=== PATIENT | female | born 1965 | race Asian ===

== ENCOUNTER 2019-02-12 12:22 | Outpatient (CLI) | payer BC, OTHER ==
[~2019-02-12 12:22] MED LIST: ASCO500C16 PO; ASPI-1165 PO; CHOL20004 PO; FOLI-65 PO
[2019-02-12 13:35] LABS: BASOPHILS # (AUTO) 0.1 K/uL (0.0-8.0); BASOPHILS % (AUTO) 1.1 % (0.0-2.0); EOSINOPHILS # (AUTO) 0.2 K/uL (0.0-0.7); EOSINOPHILS % (AUTO) 2.4 % (0.0-7.0); HEMATOCRIT 40.3 % (31.2-41.9); HEMOGLOBIN 13.2 g/dL (10.9-14.3); LYMPHOCYTES # (AUTO) 2.3 K/uL (20.0-40.0); LYMPHOCYTES % (AUTO) 23.7 % (20.5-51.5); MEAN CORPUSCULAR HEMOGLOBIN 27.5 uug (24.7-32.8); MEAN CORPUSCULAR HGB CONC 33 g/dL (32.3-35.6); MEAN CORPUSCULAR VOLUME 83.9 fL (75.5-95.3); MONOCYTES # (AUTO) 0.6 K/uL (2.0-10.0); MONOCYTES % (AUTO) 6.1 % (0.0-11.0); NEUTROPHILS # (AUTO) 6.5 K/uL (1.8-8.9); NEUTROPHILS % (AUTO) 66.7 % (38.5-71.5); PLATELET COUNT (AUTO) 261 K/uL (179-408); RED BLOOD CELL COUNT(AUTO) 4.81 MIL/uL (3.63-4.92); WHITE BLOOD COUNT (AUTO) 9.7 K/uL (3.8-11.8)
[2019-02-12 13:56] LABS: THYROID STIMULATING HORMONE 3.803 mIU/mL (0.358-3.740)
[2019-02-12 14:13] LABS: BILIRUBIN,TOTAL 0.6 mg/dL (0.2-1.0); CREATININE 0.5 mg/dL (0.6-1.3); MAGNESIUM 2.1 mg/dL (1.8-2.4); POTASSIUM 3.8 mmol/L (3.5-5.1); TOTAL PROTEIN, SERUM 7.7 g/dL (6.4-8.2)
[2019-02-13 13:06] LABS: *SJOGREN'S ANTI-SS-A <0.2 AI (0.0-0.9); *SJOGREN'S ANTI-SS-B 2.2 AI (0.0-0.9); *SMITH ANTIBODIES <0.2 AI (0.0-0.9); ANTI-DNA(DS) AB, QN <1 IU/mL (0-9)
== END 2019-02-12 23:59 | disposition home or self-care (01) ==
LOC: MERGE 12:22 → LAB 12:22
DX: M77.31 Calcaneal spur, right foot (principal); L65.9 Nonscarring hair loss, unspecified; L60.3 Nail dystrophy
CPT/HCPCS: 36415; 73620; 83550; 83735; 84443; 84480; 85025; 85651; 86038

== ENCOUNTER 2019-02-15 12:12 | Emergency (ER) | payer BC, OTHER ==
[~2019-02-15] VITALS: Ht 157.5 cm; Wt 72.6 kg
--- NOTE | 2019-02-15 12:32 | NUR ---
ERMD at bedside for MSE
[2019-02-15] MEDS ORDERED: HYDROCODONE/APAP 10-325 MG TABLET ONE (12:38)
[2019-02-15] MEDS ORDERED: predniSONE 50 MG TABLET ONE (12:39)
[2019-02-15] MEDS ORDERED: predniSONE 10 MG TABLET ONE (12:39)
[2019-02-15] MEDS ORDERED: HYDROCODONE/APAP 10-325 MG TABLET PO ONE (12:45)
[2019-02-15] MEDS ORDERED: predniSONE 20 MG TABLET PO ONE (12:45)
--- NOTE | 2019-02-15 12:48 | NUR ---
Patient refused raj silva aware.
[2019-02-15] MEDS ORDERED: ACETAMINOPHEN ES 500 MG TABLET ONE (12:50)
[2019-02-15] MEDS ORDERED: ACETAMINOPHEN ES 500 MG TABLET PO ONE (13:00)
[2019-02-15 13:01] VITALS: BP 106/72
== END 2019-02-15 13:02 | disposition home or self-care (01) ==
LOC: ER 12:12
DX: M54.42 Lumbago with sciatica, left side (principal); M54.41 Lumbago with sciatica, right side; Z88.2 Allergy status to sulfonamides; Z88.8 Allergy status to other drugs, medicaments and biological substances; Z79.82 Long term (current) use of aspirin; Z79.899 Other long term (current) drug therapy
CPT/HCPCS: 99283; J7512 ×2; A4663; A9150

== ENCOUNTER 2020-01-13 10:13 | Outpatient (CLI) | payer BC, OTHER ==
[~2020-01-13 10:13] MED LIST changes: -ASCO500C16 PO; +ASCO500C6 PO
[2020-01-13 10:52] LABS: BASOPHILS # (AUTO) 0.1 K/uL (0.0-8.0); BASOPHILS % (AUTO) 0.8 % (0.0-2.0); EOSINOPHILS # (AUTO) 0.3 K/uL (0.0-0.7); EOSINOPHILS % (AUTO) 3.9 % (0.0-7.0); HEMATOCRIT 42.3 % (31.2-41.9); HEMOGLOBIN 14.2 g/dL (10.9-14.3); LYMPHOCYTES # (AUTO) 1.9 K/uL (20.0-40.0); LYMPHOCYTES % (AUTO) 26.2 % (20.5-51.5); MEAN CORPUSCULAR HEMOGLOBIN 27.8 uug (24.7-32.8); MEAN CORPUSCULAR HGB CONC 34 g/dL (32.3-35.6); MEAN CORPUSCULAR VOLUME 82.9 fL (75.5-95.3); MONOCYTES # (AUTO) 0.4 K/uL (2.0-10.0); MONOCYTES % (AUTO) 5.6 % (0.0-11.0); NEUTROPHILS # (AUTO) 4.6 K/uL (1.8-8.9); NEUTROPHILS % (AUTO) 63.5 % (38.5-71.5); PLATELET COUNT (AUTO) 284 K/uL (179-408); WHITE BLOOD COUNT (AUTO) 7.3 K/uL (3.8-11.8)
[2020-01-13 11:22] LABS: THYROID STIMULATING HORMONE 2.197 mIU/mL (0.358-3.740)
[2020-01-13 11:36] LABS: BILIRUBIN,TOTAL 0.6 mg/dL (0.2-1.0); CREATININE 0.8 mg/dL (0.6-1.3); MAGNESIUM 2.2 mg/dL (1.8-2.4); POTASSIUM 3.6 mmol/L (3.5-5.1)
[2020-01-13 11:51] LABS: *BILIRUBIN,URIN NEGATIVE (NEGATIVE); *BLOOD, URINE 1+ (NEGATIVE); *CLARITY,URINE CLEAR (CLEAR); *COLOR,URINE YELLOW (YELLOW); *KETONES,URINE NEGATIVE (NEGATIVE); *UROBILINOGEN,URINE 0.2 E.U./dl (NORMAL); LEUKOCYTE ESTERASE ,URINE NEGATIVE (NEGATIVE); NITRITE, URINE NEGATIVE (NEGATIVE); UGLUCOSE NEGATIVE (NEGATIVE)
[2020-01-13 14:42] LABS: BACTERIA,URINE FEW /HPF (NONE SEEN); SQUAMOUS EPITHELIAL CELL,UR FEW /HPF (NONE SEEN); WBC,URINE 0-3 /HPF (0-3)
== END 2020-01-13 23:59 | disposition home or self-care (01) ==
LOC: LAB 10:13
DX: E66.9 Obesity, unspecified (principal); R35.0 Frequency of micturition; Z00.00 Encounter for general adult medical examination without abnormal findings
CPT/HCPCS: 36415; 82306; 83550; 83735; 84443; 85025; 85651; 86140; 87086

== ENCOUNTER 2020-01-14 14:20 | Outpatient (CLI) | payer BC, OTHER | END 2020-01-14 23:59 | disposition home or self-care (01) | LOC: US 14:20 | DX: R35.0 Frequency of micturition (principal); M19.90 Unspecified osteoarthritis, unspecified site; Z79.899 Other long term (current) drug therapy; Z98.890 Other specified postprocedural states; Z79.82 Long term (current) use of aspirin; Z88.2 Allergy status to sulfonamides; Z88.8 Allergy status to other drugs, medicaments and biological substances | CPT/HCPCS: 51798 ==

== ENCOUNTER 2020-08-27 18:22 | Emergency (ER) | payer BC, OTHER ==
[~2020-08-27] VITALS: Ht 157.5 cm; Wt 72.6 kg
--- NOTE | 2020-08-27 19:05 | NUR ---
Recieved pt from [facility]. Pt presents to ER with c/o of Lt shoulder pain since saturday. No swelling noted. States she took tylenol prior to arrival and current pain level is 5/10. No acute distress noted.
[2020-08-27] MEDS ORDERED: predniSONE 20 MG TABLET PO ONE (19:45)
[2020-08-27] MEDS ORDERED: predniSONE 20 MG TABLET ONE (19:54)
--- NOTE | 2020-08-27 20:03 | NUR ---
Per Dr. Castano pt stable for discharge. DC instructions and rx given and reviewed with pt. Verbalized understanding. Left ER in stable condition.
[2020-08-27 20:05] VITALS: BP 131/73
== END 2020-08-27 20:03 | disposition home or self-care (01) ==
LOC: ER 18:28
DX: M25.512 Pain in left shoulder (principal); M65.812 Other synovitis and tenosynovitis, left shoulder; Z82.49 Family history of ischemic heart disease and other diseases of the circulatory system; Z88.2 Allergy status to sulfonamides
CPT/HCPCS: 72040; 73030; 99284; J7512; A4663

== ENCOUNTER 2021-05-17 10:04 | Outpatient (CLI) | payer BC, OTHER ==
[2021-05-17 10:34] LABS: HEMATOCRIT 40.1 % (31.2-41.9); MEAN CORPUSCULAR HEMOGLOBIN 27.5 uug (24.7-32.8); PLATELET COUNT (AUTO) 274 K/uL (179-408)
[2021-05-17 10:36] LABS: *BILIRUBIN,URIN NEGATIVE (NEGATIVE); *BLOOD, URINE NEGATIVE (NEGATIVE); *CLARITY,URINE CLEAR (CLEAR); *COLOR,URINE YELLOW (YELLOW); *KETONES,URINE NEGATIVE (NEGATIVE); *UROBILINOGEN,URINE 0.2 E.U./dl (NORMAL); LEUKOCYTE ESTERASE ,URINE NEGATIVE (NEGATIVE); NITRITE, URINE NEGATIVE (NEGATIVE); UGLUCOSE NEGATIVE (NEGATIVE)
[2021-05-17 11:37] LABS: BILIRUBIN,TOTAL 0.5 mg/dL (0.2-1.0); CREATININE 0.7 mg/dL (0.6-1.3); MAGNESIUM 2.3 mg/dL (1.8-2.4); POTASSIUM 3.6 mmol/L (3.5-5.1); TOTAL PROTEIN, SERUM 7.4 g/dL (6.4-8.2)
[2021-05-17 12:00] LABS: THYROID STIMULATING HORMONE 1.687 mIU/mL (0.358-3.740)
== END 2021-05-17 23:59 | disposition home or self-care (01) ==
LOC: LAB 10:04
PROVIDERS: ATTEND Internal Medicine
DX: E66.9 Obesity, unspecified (principal); R42 Dizziness and giddiness; M79.672 Pain in left foot; R07.9 Chest pain, unspecified
CPT/HCPCS: 36415; 71046; 73630; 82306; 83550; 83735; 84443; 84480; 85025; 85651; 86140

== ENCOUNTER → 2022-07-27 | Outpatient (CLI) | payer BC, OTHER ==
[2022-07-27 10:57] LABS: *BILIRUBIN,URIN NEGATIVE (NEGATIVE); *CLARITY,URINE CLEAR (CLEAR); *COLOR,URINE YELLOW (YELLOW); *KETONES,URINE NEGATIVE (NEGATIVE); *UROBILINOGEN,URINE 0.2 E.U./dl (NORMAL); LEUKOCYTE ESTERASE ,URINE NEGATIVE (NEGATIVE); NITRITE, URINE NEGATIVE (NEGATIVE); UGLUCOSE NEGATIVE (NEGATIVE)
[2022-07-27 11:02] LABS: HEMATOCRIT 41.3 % (31.2-41.9); MEAN CORPUSCULAR HEMOGLOBIN 26.3 uug (24.7-32.8); MEAN CORPUSCULAR VOLUME 83.1 fL (75.5-95.3); PLATELET COUNT (AUTO) 255 K/uL (179-408)
[2022-07-27 11:05] LABS: *BLOOD, URINE TRACE (NEGATIVE)
[2022-07-27 11:24] LABS: THYROID STIMULATING HORMONE 2.336 mIU/mL (0.358-3.740)
[2022-07-27 11:30] LABS: BILIRUBIN,TOTAL 0.5 mg/dL (0.2-1.0); CREATININE 0.7 mg/dL (0.6-1.3); MAGNESIUM 2.2 mg/dL (1.8-2.4); POTASSIUM 4.2 mmol/L (3.5-5.1); TOTAL PROTEIN, SERUM 7.7 g/dL (6.4-8.2)
[2022-07-27 12:21] LABS: RBC,URINE 0-3 /HPF (0-3)
[2022-07-27 12:22] LABS: WBC,URINE 0-3 /HPF (0-3)
[2022-07-28 09:06] LABS: THYROID PEROXIDASE (TPO) AB <9 IU/mL (0-34)
== END | disposition home or self-care (01) ==
LOC: LAB 10:17
PROVIDERS: ATTEND Internal Medicine
DX: Z00.00 Encounter for general adult medical examination without abnormal findings (principal); R42 Dizziness and giddiness; E66.9 Obesity, unspecified
CPT/HCPCS: 36415; 82306; 83525; 83735; 84443; 84480; 85025; 85651; 86140

== ENCOUNTER 2023-02-04 09:31 | Emergency (ER) | payer BC, OTHER ==
[~2023-02-04] VITALS: Ht 157.5 cm; Wt 77.1 kg
[2023-02-04] MEDS ORDERED: AMOX-430 PO (10:33)
[2023-02-04] MEDS ORDERED: BENZ-13 PO (10:33)
[2023-02-04 10:38] VITALS: BP 112/76; TEMP 98.1; O2SAT 98
== END 2023-02-04 10:40 | disposition home or self-care (01) ==
LOC: ER 09:31
DX: J02.9 Acute pharyngitis, unspecified (principal); J06.9 Acute upper respiratory infection, unspecified; Z88.2 Allergy status to sulfonamides; Z88.8 Allergy status to other drugs, medicaments and biological substances; Z79.2 Long term (current) use of antibiotics; Z79.82 Long term (current) use of aspirin; Z79.899 Other long term (current) drug therapy; Z20.822 Contact with and (suspected) exposure to COVID-19
CPT/HCPCS: 86403; A4606; A4663

== ENCOUNTER 2023-06-05 10:14 | Outpatient (CLI) | payer BC, OTHER ==
[~2023-06-05 10:14] MED LIST changes: +AMOX-430 PO; +BENZ-13 PO
[2023-06-05 10:48] LABS: BASOPHILS # (AUTO) 0.3 K/UL (0.0-0.2); BASOPHILS % (AUTO) 3.2 % (0.0-2.0); EOSINOPHILS # (AUTO) 0.4 K/uL (0.0-0.7); EOSINOPHILS % (AUTO) 4.1 % (0.0-7.0); HEMATOCRIT 41.3 % (31.2-41.9); HEMOGLOBIN 13.4 g/dL (10.9-14.3); LYMPHOCYTES # (AUTO) 2.1 K/uL (0.8-4.8); LYMPHOCYTES % (AUTO) 19.1 % (20.5-51.5); MEAN CORPUSCULAR HEMOGLOBIN 26.8 uug (24.7-32.8); MEAN CORPUSCULAR HGB CONC 33 g/dL (32.3-35.6); MEAN CORPUSCULAR VOLUME 82.3 fL (75.5-95.3); MONOCYTES # (AUTO) 0.6 K/uL (0.1-1.30); NEUTROPHILS # (AUTO) 7.3 K/uL (1.8-8.9); NEUTROPHILS % (AUTO) 67.6 % (38.5-71.5); PLATELET COUNT (AUTO) 240 K/uL (179-408); RED BLOOD CELL COUNT(AUTO) 5.02 MIL/uL (3.63-4.92); RED CELL DISTRIBUTION WIDTH 14.6 % (12.3-17.7); WHITE BLOOD COUNT (AUTO) 10.8 K/uL (3.8-11.8)
[2023-06-05 10:57] LABS: DIFFERENTIAL COMMENT 1
[2023-06-05 10:58] LABS: *BILIRUBIN,URIN NEGATIVE (NEGATIVE); *CLARITY,URINE CLEAR (CLEAR); *COLOR,URINE YELLOW (YELLOW); *KETONES,URINE NEGATIVE (NEGATIVE); *PROTEIN,URINE NEGATIVE (NEGATIVE); *UROBILINOGEN,URINE 0.2 E.U./dl (NORMAL); LEUKOCYTE ESTERASE ,URINE TRACE (NEGATIVE); NITRITE, URINE NEGATIVE (NEGATIVE); UGLUCOSE NEGATIVE (NEGATIVE)
[2023-06-05 11:00] LABS: *BLOOD, URINE TRACE (NEGATIVE)
[2023-06-05 11:06] LABS: ERYTHROCYTE SEDIMENTATION RATE 36 MM/HR (0-20)
[2023-06-05 11:11] LABS: RBC,URINE 0-3 /HPF (0-3)
[2023-06-05 11:12] LABS: BACTERIA,URINE FEW /HPF (NONE SEEN); SQUAMOUS EPITHELIAL CELL,UR MODERATE /HPF (NONE SEEN)
[2023-06-05 11:43] LABS: THYROID STIMULATING HORMONE 2.16 mIU/mL (0.358-3.740)
[2023-06-05 11:55] LABS: ALBUMIN 3.4 g/dL (3.4-5.0); BILIRUBIN,TOTAL 0.4 mg/dL (0.2-1.0); CALCIUM 8.7 mg/dL (8.5-10.1); CREATININE 0.8 mg/dL (0.6-1.3); MAGNESIUM 2.1 mg/dL (1.8-2.4); POTASSIUM 3.6 mmol/L (3.5-5.1); TOTAL PROTEIN, SERUM 7.5 g/dL (6.4-8.2)
[2023-06-05 12:03] LABS: C-REACTIVE PROTEIN 1.58 mg/dL (0.00-0.30)
[2023-06-06 12:07] LABS: ALBUMIN 3.4 g/dL (2.9-4.4); ALPHA-1-GLOBULIN 0.2 g/dL (0.0-0.4); ALPHA-2-GLOBULIN 0.8 g/dL (0.4-1.0); BETA GLOBULIN 1.1 g/dL (0.7-1.3); GAMMA GLOBULIN 1.1 g/dL (0.4-1.8); GLOBULIN, TOTAL 3.3 g/dL (2.2-3.9); M-SPIKE Not Observed g/dL (Not Observed)
== END 2023-06-05 23:59 | disposition home or self-care (01) ==
LOC: LAB 10:14
PROVIDERS: ATTEND Internal Medicine
DX: Z00.00 Encounter for general adult medical examination without abnormal findings (principal); R00.2 Palpitations; R42 Dizziness and giddiness
CPT/HCPCS: 36415; 83550; 83735; 84155; 84165; 84443; 85025; 85651; 86140